=== PATIENT | male | born 1940 | race Caucasian/White ===

== ENCOUNTER → 2022-03-19 13:36 | Outpatient (BNVA) | payer MEDICARE, OTHER, SELFPAY | PROVIDERS: Visit Provider Urology | DX: N43.3 Hydrocele, unspecified (principal) | CPT/HCPCS: 99202; 99203 ==

== ENCOUNTER 2022-04-01 13:47 | Day surgery (SDC) | payer MEDICARE, OTHER, SELFPAY ==
[2022-04-01 16:37] VITALS: BP 142/90; PULSE 64; RESP 16; TEMP 36.3; O2SAT 99; BMI 23.0
--- NOTE | 2022-04-01 17:03 | P.HPSUR_ITS ---
Pre-Procedural Eval Section A Date of Service: 04/01/22 The patient is an INPATIENT: No Changes since office visit: No Cold of Flu in the past 2 weeks, No New Medical Problems, No Changes in Medication and No Patient answered all questions The History & Physical has been completed within 30 days and I have reviewed it.: Yes Section B Chief Complaint: Hydrocele, unspecified Details of Present Illness: left hydrocele pain Relevant Family History (Specify if Yes): No Relevant Social History: None Present Medications: see Short Stay Collaborative assessment Medical History: Significant History History of Previous Operations: No relevant previous surgery Allergies: Allergies Allergy/AdvReac Type Severity Reaction Status Date / Time No Known Allergies Allergy Verified 04/01/22 16:45 Review of Systems Sugical H&P ROS: Negative: Constitution, Cardiovascular, Respiratory, Neurological, Psychiatric, Hem-Onc, Allergic/Immunologic, Gastrointestinal, Genitourinary, Musculoskeletal, Integumentary, Endocrine and Eyes/Ears/Nose/Throat Exam Surgical H&P Exam: Normal: HEENT, Normal: Heart, Normal: Lungs, Normal: E xtremities, Normal: Abdomen, Normal: Skin and Normal: Neurological Plan Diagnosis/Plan: Unchanged ( left hydrocelectomy) I have reviewed the history and physical and performed a pertinent physical examination on my patient. No changes have occurred unless specified.
--- NOTE | 2022-04-01 17:12 | P.CONAN_ITS ---
[facility] Active Problems Active Problems: All Active Problems (Updated 03/19/22 @ 14:28 by Parveen Cruz MD) Hydrocele in adult (Acute) Family History Family history of problems with anesthesia: No Surgical History History of Problems with Anesthesia: No Social History Social History Patient Tobacco Use Status: Never used Tobacco Use of substances other than those prescribed or required for medical reasons: No Are you DNR?: No Advance Directives: No Advance Directives Information Provided: Yes Meds Allergies Allergy/AdvReac Type Severity Reaction Status Date / Time No Known Allergies Allergy Verified 04/01/22 16:45 Active Medications: Current Medications Cefazolin Sodium/Dextrose (Ancef) 2 gm in 50 mls @ 100 mls/hr IV PREOP ONE Stop: 04/01/22 17:29 Exam Exam Date and Time: April 01, 2022 171 Height,Weight and Vital Signs: Height 5 ft 11 in Weight 74.843 kg Last Vital Signs Temp 97.3 F 04/01/22 16:37 Pulse 64 04/01/22 16:37 Resp 16 04/01/22 16:37 BP 142/90 H 04/01/22 16:37 Pulse Ox 99 04/01/22 16:37 Airway Mallampati Class: III TM Dist: >3cm Neck ROM: Full Heart: RRR Lungs: CTA Assessment and Plan Final Anesthetic Review Family History of Problems with Anesthesia: No History of Problems with Anesthesia: No NPO: Yes Final Preanesthetic Review: No Changes in Pt Med Stat, Meds/Allgs Chart Reviewed, Consent Obtained/Reviewed and Anes Risks/Benef Reviewed Patient Risk: Intermediate Anesthetic Plan Anesthetic Plan: GA Disposition: Standard PACU
--- NOTE | 2022-04-01 17:16 | HO.ANESPROP2 ---
[facility] Active Problems Active Problems: All Active Problems (Updated 03/19/22 @ 14:28 by Parveen Cruz MD) Hydrocele in adult (Acute) Past Medical History Functional capacity: independent ambulation Family History Family history of problems with anesthesia: No Surgical History History of Problems with Anesthesia: No Social History Social History Patient Tobacco Use Status: Never used Tobacco Use of substances other than those prescribed or required for medical reasons: No Are you DNR?: No Advance Directives: No Advance Directives Information Provided: Yes Meds Allergies Allergy/AdvReac Type Severity Reaction Status Date / Time No Known Allergies Allergy Verified 04/01/22 16:45 Active Medications: Current Medications Cefazolin Sodium/Dextrose (Ancef) 2 gm in 50 mls @ 100 mls/hr IV PREOP ONE Stop: 04/01/22 17:29 Exam Exam Date and Time: April 01, 2022 1716 Height,Weight and Vital Signs: Height 5 ft 11 in Weight 74.843 kg Last Vital Signs Temp 97.3 F 04/01/22 16:37 Pulse 64 04/01/22 16:37 Resp 16 04/01/22 16:37 BP 142/90 H 04/01/22 16:37 Pulse Ox 99 04/01/22 16:37 Airway Heart: RRR Lungs: CTA Assessment and Plan Final Anesthetic Review Family History of Problems with Anesthesia: No History of Problems with Anesthesia: No ASA Class: II Final Preanesthetic Review: No Changes in Pt Med Stat, Meds/Allgs Chart Reviewed, Consent Obtained/Reviewed and Anes Risks/Benef Reviewed Patient Risk: Intermediate Procedure Risk: Low Anesthetic Plan Anesthetic Plan: GA Disposition: Standard PACU
[2022-04-01 17:20] LABS: Glucose, Whole Blood 136 mg/dL (60-115)
[2022-04-01 19:30] VITALS: BP 147/75; PULSE 65; RESP 16; TEMP 36.5; O2SAT 94
[2022-04-01 19:35] VITALS: BP 145/82; PULSE 62; RESP 16; O2SAT 94
[2022-04-01 19:40] VITALS: BP 134/80; PULSE 67; RESP 18; O2SAT 96
[2022-04-01 19:45] VITALS: BP 163/78; PULSE 66; RESP 18; O2SAT 97
[2022-04-01 20:00] VITALS: BP 156/75; PULSE 62; RESP 20; TEMP 36.7; O2SAT 96
--- NOTE | 2022-04-01 20:03 | PM.ANESPN ---
Subjective Subjective Date of Service: 04/01/22 Physical Exam Vital Signs: Vital Signs: Last Vital Signs Temp 97.7 F 04/01/22 19:30 Pulse 66 04/01/22 19:45 Resp 18 04/01/22 19:45 BP 163/78 H 04/01/22 19:45 Pulse Ox 97 04/01/22 19:45 BMI result Body Mass Index 23.0 Progress Note: A&P Time Spent With Patient Time: Total time spent is greater than 50% in coordination of care (as documented) at patient's floor/unit and/or counseling patient:
--- NOTE | 2022-04-01 20:04 | HO.POSTANES ---
Post Anesthesia Evaluation Post Anesthesia Evaluation Vital Signs: Vital Signs Temp Pulse Resp BP Pulse Ox 04/01/22 19:45 66 18 163/78 H 97 04/01/22 19:40 67 18 134/80 96 04/01/22 19:35 62 16 145/82 H 94 04/01/22 19:30 97.7 F 65 16 147/75 H 94 04/01/22 16:37 97.3 F 64 16 142/90 H 99 Anesthesia: General LMA Mental Status: Awake Pain Control: Satisfactory Nausea/Vomiting: None Hydration: Adequate Anesthesia-Related Issues: No Anes. Related Issues
--- NOTE | 2022-04-01 21:24 | W.PM.OPN ---
Operative Note Operative Note Date of Service: 04/01/22 Narrative: PreOperative Diagnosis: Left hydrocele Post Operative Diagnosis: Left hydrocele with spermatocele Procedure: Left Hydrocelectomy and spermatocele removal Surgeon: Dr Parveen Cruz Anesthesia: General Indications for procedure: Left hydrocele with persistent discomfort Procedure: After informed consent was verified the patient was brought to the operating room and placed in a supine position. Anesthesia was administered per protocol. Patient was appropriately shaved and genitals were prepped and draped in sterile fashion. Safety pause time-out was performed. Antibiotics being given. Local anesthetic was infiltrated under the skin in a horizontal fashion on the scrotum. Skin incision was made using a blade through the subdermal layer. The tunica around the testicle was elevated and dissected free from surrounding tissue. Using a wet sponge the hydrocele tunic covering was bluntly dissected. To holding stay sutures were placed to elevate the tunic and the tunic opened to allow drainage of hydrocele. The tunic was completely dissected free and delivered with the testicle through the incision. The testicle sac was inverted. A concomitant left spermatocele was found and carefully dissected free. Excess tunica was dissected free using a LigaSure device to ensure good hemostasis. Bleeding areas within the cord were controlled with cautery. A bottle neck procedure was performed using a running 3-0 Vicryl suture. Skin edges of the tunica were cauterized carefully in order to try to minimize postprocedure hematoma. The testicle was placed back into a dependent portion of the scrotum. Overlying layers were closed with a running 3-0 Vicryl suture. Skin was closed with interrupted and horizontal 5-0 chromic sutures. Patient tolerated procedure well was extubated in operating room transferred in stable condition to the recovery area Pathology: Hydrocele sac Drains: none
== END 2022-04-01 20:24 | disposition home or self-care (01) ==
PROVIDERS: PCP Urology; Visit Provider Urology
PROC: (CPT 55060; principal; 2022-04-01 16:00)
DX: N43.3 Hydrocele, unspecified (principal); Z79.899 Other long term (current) drug therapy
CPT/HCPCS: 55040; 82947; 88302; J0690; J3010